=== PATIENT | male | born 1935 | race Caucasian/White ===

== ENCOUNTER 2017-02-24 10:42 | Emergency (ER) | payer OTHER ==
[~2017-02-24] VITALS: Ht 172.7 cm; Wt 70.3 kg
[2017-02-24] MEDS ORDERED: LISINOPRIL10 MG PO (12:16)
[2017-02-24] MEDS ORDERED: LIPITOR 20 MG T20 M1 PO (12:17)
[2017-02-24] MEDS ORDERED: ASPIR 8181 MG PO (12:17)
[2017-02-24 12:20] LABS: ABSOLUTE NEUTROPHILS 4.9 thou/uL (1.4-8.2); BASOPHILS 0.7 % (0.0-2.0); HEMATOCRIT 37.8 % (42.0-52.0); HEMOGLOBIN 13.1 gm/dL (14.0-18.0); LYMPHOCYTES 23.5 % (24.0-44.0); MCH 29.9 pg (26.0-34.0); MCHC 34.7 g/dL (28.0-37.0); MCV 86.3 fL (80.0-100.0); MONOCYTES 10.5 % (1.0-8.0); PLATELET COUNT 173 thou/uL (150-400); POLYS 62.3 % (36.0-66.0); RBC 4.38 mil/uL (4.50-6.00); RDW 13.3 % (10.5-14.5); WBC 7.9 thou/uL (4.0-11.0)
[2017-02-24 12:29] LABS: MANUAL DIFF NO
[2017-02-24 12:32] LABS: CALCIUM 9.5 mg/dL (8.5-10.1); CREATININE 1.4 mg/dL (0.7-1.3); POTASSIUM 4.3 mmol/L (3.5-5.1)
[2017-02-24] MEDS ORDERED: CLEOCIN HCL150 MG PO (13:16)
[2017-02-24 13:56] VITALS: BP 119/62
== END 2017-02-24 14:00 | disposition home or self-care (01) ==
LOC: ER 10:42
PROVIDERS: Physician Assistant
DX: S81.802D Unspecified open wound, left lower leg, subsequent encounter (principal); L08.9 Local infection of the skin and subcutaneous tissue, unspecified; Z88.6 Allergy status to analgesic agent; X58.XXXD Exposure to other specified factors, subsequent encounter